=== PATIENT | male | born 1995 | race African-American/Black ===

== ENCOUNTER 2023-06-11 08:45 | Outpatient (CLI) | payer OTHER ==
[2023-06-11 21:22] LABS: CHLAMYDIA TRACHOMATIS DNA NEGATIVE (NEGATIVE); NEISSERIA GONORRHOEAE DNA NEGATIVE (NEGATIVE); TRICHOMONAS VAGINALIS DNA NEGATIVE (NEGATIVE)
[2023-06-12 10:09] LABS: RPR Non Reactive (Non Reactive)
[2023-06-12 12:09] LABS: HIV SCREEN 4TH GENERATION Non Reactive (Non Reactive)
[2023-06-12 13:10] LABS: HSV 2 IGG TYPE SPEC <0.91 index (0.00-0.90)
[2023-06-12 21:07] LABS: HCV AB Non Reactive (Non Reactive)
== END 2023-06-11 09:00 | disposition home or self-care (01) ==
LOC: LAB.N 08:45
PROVIDERS: ATTEND Family Medicine
DX: N45.1 Epididymitis (principal)
CPT/HCPCS: 36415; 86592; 86695; 86696; 86803; 87389; 87491; 87536; 87591; 87661

== ENCOUNTER 2023-10-14 11:15 | Outpatient (CLI) | payer OTHER ==
[2023-10-14 20:42] LABS: CHLAMYDIA TRACHOMATIS DNA NEGATIVE (NEGATIVE); NEISSERIA GONORRHOEAE DNA NEGATIVE (NEGATIVE); TRICHOMONAS VAGINALIS DNA NEGATIVE (NEGATIVE)
[2023-10-15 05:14] LABS: RPR Non Reactive (Non Reactive)
[2023-10-15 06:10] LABS: HSV 2 IGG TYPE SPEC <0.91 index (0.00-0.90)
[2023-10-15 07:10] LABS: HCV AB Non Reactive (Non Reactive); HIV SCREEN 4TH GENERATION Non Reactive (Non Reactive)
== END 2023-10-14 11:30 | disposition home or self-care (01) ==
LOC: LAB.N 11:15
PROVIDERS: ATTEND Physician Assistant Medical
DX: Z11.3 Encounter for screening for infections with a predominantly sexual mode of transmission (principal)
CPT/HCPCS: 36415; 86592; 86695; 86696; 86803; 87389; 87491; 87591; 87661

== ENCOUNTER 2023-12-16 11:44 | Outpatient (CLI) | payer OTHER ==
--- NOTE | 2023-12-16 13:25 | Sleep Patient Instructions ---
Sleep Center Visit Summary - Patient Visit Information Reason for Visit: Initial consult for evaluation of sleep disordered breathing and other sleep issues. - Patient Instructions Instructions Attached: Sleep Study Additional Instructions: You will be completing a sleep study, either an in-lab polysomnography (PSG) or home sleep study (HST). You will follow-up in the sleep care office after the sleep study is completed to hear the results and talk about therapy, if needed. You will be called by our office staff to schedule this appointment, but you may contact us with any questions. - Clinic Information Contact: [facility] [address] [place] [address] [email or web address] T: [phone]
--- NOTE | 2023-12-16 13:28 | SLEEP CARE CONSULTATION ---
Information from patient questionnaire entered by Darius Spencer. I have reviewed and concur with the information entered by Darius Spencer. This document represents the service I personally performed and the decisions made by me, Concha Israel ARNP. History of Present Illness Service Date and Time: 12/16/2023 1144 Reason for Visit: New patient Chief Complaint: reports: Unrefreshed sleep, Snoring, Excessive daytime sleepiness, Observed pauses in breathing, Fatigue, Frequent awakenings at night Date of Onset: 5MONTHS Usual bedtime: 9PM Time it takes to fall asleep: QUICK Snores at night: Yes Observed to quit breathing while asleep: Yes Sleeps alone due to snoring: Yes Number of times waking at night: 2 Reasons for waking at night: reports: Snoring, Pain, Bathroom. denies: Choking, Gasping for air Toss, Turn, or Twitch while sleeping: Yes Recalls having dreams: Yes Usually gets out of bed at: 5-6AM Feels refreshed in the morning: No Morning headache: Yes (depends on how much work happened day before) Sleepy or fatigued during the day: Yes Ever fallen asleep while driving: Yes (drowsy driving, no accidents) Takes day naps: Yes (every weekend) Dreams during day naps: Yes Prior sleep studies: No Additional HPI information: I had the pleasure of seeing SARAHI WISEMAN today regarding the possibility of him having a sleep disorder. His current complaints are excessive daytime sleepiness, fatigue, frequent night awakenings, observed pauses in breathing, snoring and unrefreshed sleep. He says he had a roommate tell him that he snores badly. He has snored before and was told before that he occasionally will stop breathing. He says he has gained some weight and his snoring seems to have worsened as well has his daytime fatigue and sleepiness. He states he wakes up feeling tired in the morning and is tired throughout the day. He will usually take naps on the weekends. He states his dad snores loudly and his uncle told him recently that he has sleep apnea and uses a CPAP. - Parasomnia Symptoms Ever been unable to move upon waking from sleep: Yes (happens few times a year) Walks in sleep: No Talks in sleep: Yes Ever acted out dreams in sleep: Yes (has hit out ) Ever felt weak in the knees when startled or emotional: Yes (has not fallen to ground) Bothered by creepy, crawly, restless sensations in legs: Yes (climbing stairs; walking alot or very tired) Problems with memory or concentration: Yes (both) Subjective Initial [place] Sleepiness Scale score: 22 (12/16/23) Past Medical History Past Medical History: reports: Other (no significant medical history) Social History 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 Patient is and lives in . Have you smoked in the past 12 months: No Alcohol use: No Caffeine use: No Family History Family history of sleep disordered breathing: Yes Family Hx Sleep Apnea: Father: Snoring, Sleep apnea - Untreated, Other: Sleep apnea - Treated (UNCLE) Allergies and Home Medications Known drug allergies: No Drug allergies reviewed: Yes Home medication list reviewed: Yes Allergy and home medication list: Allergies No Known Drug Allergies Allergy (Verified 12/16/23 13:04) Home Medications No Known Home Medications 12/16/23 [History] Review of Systems Weight loss over past 5 years: 14 Cardiovascular: denies: high blood pressure Gastrointestinal: denies: heartburn Neurological: denies: headaches, head trauma Psychiatric: denies: anxiety, depression Ear/Nose/Throat: reports: dry mouth/throat (dry mouth in morning; sore around uvula). denies: injury to nose, tonsillectomy, wisdom teeth removed Endocrine: denies: thyroid disease Immunologic: reports: allergies to food or environment (seasonal ) Physical Exam Vital signs obtained and entered by: DARIUS Barber MA Blood Pressure: 136/86 (LEFT ARM) Cuff size: long Heart Rate: 61 O2 Saturation: 98 Height: 5 ft 8 in Weight: 231 lb Body Mass Index: 35.1 BMI Classification: Obese Neck circumference: 16.75 Mouth and throat: narrow oropharynx Soft palate: long Hard palate: normal Uvula: long, edematous Uvula visualization: 0% Mallampati Class IV Tongue: enlarged in size with teeth sommers on lateral edges Tonsils: 2+ Neck: normal w/o lymphadenopathy or thyromegaly Heart: regular rate and rhythm Lungs: clear bilaterally Impression and Plan 1. Suspected Obstructive Sleep Apnea-Hypopnea Syndrome, as suggested by a history of loud and irregular snoring, observed cessation of breath while asleep, morning headache, frequent awakening during the night, unrefreshed sleep, cognitive impairment, and excessive daytime sleepiness. Narrow oropharynx and obesity are common predisposing factors for obstructive sleep apnea-hypopnea syndrome. I recommend proceeding to polysomnography to confirm the diagnosis and to assess severity. If the patient has significant sleep disordered breathing, a manual CPAP titration study will also be performed to find the optimal treatment pressure. I informed the patient of what the sleep studies involve and after some discussion, obtained agreement to proceed. The pathophysiology of obstructive sleep apnea-hypopnea syndrome was discussed with the patient and health risks of cardiovascular and cerebrovascular disease if not treated. Risks of drowsy driving discussed in detail and patient advised to avoid long distance driving and to pulley man at the first sign of drowsiness. Patient agreed to plan. * Schedule polysomnography +- manual CPAP titration study and return in 1-2 weeks after the study to discuss result and initiate therapy. * Avoid long distance driving or driving when feeling sleepy. * Avoid alcohol, sedative and muscle relaxant around bedtime. * Attempt to lose weight. * Review instructions provided by trained office staff on how to prepare for the sleep study. * Return for follow-up after sleep study completed. Counseling Topics: Weight loss health impact Follow up with Sleep Care in: other (after sleep study) Plan: PSG/HST Visit Type: In Office Time Spent with Patient (minutes): 30 Provider Statement: I spent 100% of the Face to Face Visit with the patient with greater than 50% spent counseling the patient and coordination of care.
[2023-12-16 13:37] VITALS: BP 136/86; O2SAT 98
== END 2023-12-16 11:45 | disposition home or self-care (01) ==
LOC: SC 11:44
PROVIDERS: ATTEND Nurse Practitioner Family
DX: R06.83 Snoring (principal); R06.81 Apnea, not elsewhere classified; R51.9 Headache, unspecified; G47.8 Other sleep disorders; G47.10 Hypersomnia, unspecified; R41.89 Other symptoms and signs involving cognitive functions and awareness; E66.9 Obesity, unspecified; Z68.35 Body mass index [BMI] 35.0-35.9, adult
CPT/HCPCS: 99203; 99212

== ENCOUNTER 2024-02-11 09:30 | Outpatient (CLI) | payer OTHER ==
[2024-02-11 20:34] LABS: CHLAMYDIA TRACHOMATIS DNA NEGATIVE (NEGATIVE); NEISSERIA GONORRHOEAE DNA NEGATIVE (NEGATIVE); TRICHOMONAS VAGINALIS DNA NEGATIVE (NEGATIVE)
[2024-02-12 10:10] LABS: HIV SCREEN 4TH GENERATION Non Reactive (Non Reactive)
[2024-02-12 13:11] LABS: RPR Non Reactive (Non Reactive)
== END 2024-02-11 09:45 | disposition home or self-care (01) ==
LOC: LAB.N 09:30
PROVIDERS: ATTEND Physician Assistant
DX: R30.0 Dysuria (principal)
CPT/HCPCS: 36415; 86592; 86803; 87389; 87491; 87591; 87661